=== PATIENT | female | born 1990 | race Caucasian/White ===

== ENCOUNTER 2018-04-29 03:07 | Day surgery (SDC) | payer OTHER ==
[2018-04-29] MEDS ORDERED: SODIUM CHLORIDE 0.9% 1,000 ML IV ONE (03:42)
[2018-04-29 03:50] LABS: BASOPHILS % (AUTO) 0.4 %; EOSINOPHILS # (AUTO) 0.1 10^3/uL (0.0-0.7); EOSINOPHILS % (AUTO) 1.5 %; HGB - HEMOGLOBIN 12.9 g/dL (12.0-16.0); LYMPHOCYTES # (AUTO) 2.6 10^3/uL (1.5-3.5); LYMPHOCYTES % (AUTO) 30.3 %; MEAN CORPUSCULAR HEMOGLOBIN 30.8 pg (27.0-31.0); MEAN CORPUSCULAR HGB CONC 35.2 g/dL (32.0-36.0); MEAN CORPUSCULAR VOLUME 87.4 fL (81.0-99.0); MEAN PLATELET VOLUME 7.7 fL (7.9-10.8); MONOCYTES # (AUTO) 0.5 10^3/uL (0.0-1.0); MONOCYTES % (AUTO) 6.3 %; NEUTROPHILS # (AUTO) 5.3 10^3/uL (1.5-6.6); NEUTROPHILS % (AUTO) 61.5 %; PLT - PLATELET COUNT 292 10^3/uL (130-450); RED BLOOD COUNT 4.19 10^6/uL (4.20-5.40); RED CELL DISTRIBUTION WIDTH 13.9 % (12.0-15.0); WHITE BLOOD COUNT 8.6 x10^3/uL (4.8-10.8)
--- NOTE | 2018-04-29 03:54 | ED Physician Documentation ---
PD HPI FEMALE - Stated complaint Stated Complaint: FEMALE /10 WEEKS PREG - Chief complaint Chief Complaint: Abd Pain - History obtained from History obtained from: Patient - History of Present Illness Timing - onset: Enter time (18:00), Today Timing - details: Abrupt onset Pain level max: 4 Associated symptoms: Pelvic pain, Vaginal bleeding. No: Fever, Abdominal pain, Back pain Contributing factors: (see below) OB-RAD TECH History: G (3), P (2) Recently seen: Clinic - Additional information Additional information: 3 days ago, patient had US at [facility]. She was 10w2d by dates, but US measurements were c/w 8w2d and no heart movement seen. Patient was told this was demise and was to have reevaluation next week. She was not having bleeding or cramping at the time. This evening at 6 PM while in a car [place] the [place], she had sudden onset vaginal bleeding and suprapubic cramping which worsened and thus presents to ED for evaluation. PATIENT STATES SHE IS [employer] AND THUS DOES NOT WANT ANY BLOOD PRODUCTS INCLUDING TRANSFUSIONS. Review of Systems Constitutional: reports: Reviewed and negative Cardiac: reports: Reviewed and negative Respiratory: reports: Reviewed and negative GI: reports: Abdominal Pain (suprapubic (pelvic) pain). denies: Nausea, Vomiting : reports: Now EGA (see HPI). denies: Dysuria, Frequency Musculoskeletal: reports: Reviewed and negative PD PAST MEDICAL HISTORY - Past Medical History Neuro: None HEENT: None - Present Medications Home Medications: Ambulatory Orders Medication Instructions Recorded Confirmed Meds For Yeast Infection 04/29/18 Meds- Bacterial Vaginosis 04/29/18 - Allergies Allergies/Adverse Reactions: Allergies Allergy/AdvReac Type Severity Reaction Status Date / Time No Known Drug Allergies Allergy Verified 04/29/18 03:19 - Social History Does the pt smoke?: No Smoking Status: Never smoker Does the pt drink ETOH?: No PD ED PE NORMAL - Vitals Vital signs reviewed: Yes - General General: Alert and oriented X 3, No acute distress (appears anxious ( appropriate to situation)), Well developed/nourished - HEENT HEENT: Moist mucous membranes - Cardiac Cardiac: No murmur - Respiratory Respiratory: No respiratory distress, Clear bilaterally - Abdomen Abdomen: Soft, Non tender, Non distended - Back Back: No CVA TTP - Derm Derm: Normal color, Warm and dry - Extremities Extremities: No edema - Neuro Neuro: Alert and oriented X 3 PD ED PE EXPANDED - Cardiac Cardiac: Tachy, Regular Rhythm - Female Female : Vaginal Bleeding, 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 Os visualized, and initially small amount of oozing/bleeding noted, quickly followed by brief, rapid bleeding which patient indicated was associated with cramping pain. This blood was again cleared with gauze and there was subsequently only mild oozing from the cervix ). No: Tissue present Results - Vitals Vitals: Vital Signs - 24 hr 04/29/18 04/29/18 04/29/18 03:16 04:16 05:50 Temperature 36.8 C Heart Rate 150 H 128 H 119 H Respiratory 18 18 18 Rate Blood Pressure 136/101 H 125/83 H 110/79 O2 Saturation 99 100 100 04/29/18 04/29/18 07:00 08:02 Temperature 36.8 C Heart Rate 139 H 133 H Respiratory 18 20 Rate Blood Pressure 113/81 H 101/79 O2 Saturation 100 100 Oxygen O2 Source Room air - Labs Labs: Laboratory Tests 04/29/18 04/29/18 04/29/18 03:20 03:20 06:05 WBC 8.6 13.0 H RBC 4.19 L 3.59 L Hgb 12.9 10.7 L Hct 36.6 L 31.4 L MCV 87.4 87.5 MCH 30.8 29.8 MCHC 35.2 34.0 RDW 13.9 13.9 Plt Count 292 236 MPV 7.7 L 7.2 L Neut # (Auto) 5.3 11.5 H Lymph # (Auto) 2.6 1.1 L Montour # (Auto) 0.5 0.4 Eos # (Auto) 0.1 0.0 Baso # (Auto) 0.0 0.0 Absolute Nucleated RBC 0.00 0.00 Nucleated RBC % 0.0 0.0 Sodium 135 Potassium 3.6 Chloride 105 Carbon Dioxide 22 Anion Gap 8.0 BUN 13 Creatinine 0.6 Estimated GFR (MDRD) 122 Glucose 163 H Calcium 8.7 Total Bilirubin 0.4 AST 17 ALT 15 Alkaline Phosphatase 68 Total Protein 7.1 Albumin 3.8 Globulin 3.3 Albumin/Globulin Ratio 1.2 Lipase 28 - Rads (name of study) pelvic/TV US Radiology: Prelim report reviewed, See rad report PD MEDICAL DECISION MAKING - ED course Complexity details: reviewed results, re-evaluated patient, considered differential, d/w patient ED course: Case D/W Dr. Law, who came to ED and evaluated patient in ED. On multiple reevaluations during ED stay, patient reported significant attenuation of her bleeding and cramping. However, hgb dropped 2.2 gm over a 2h 45min span, and she remained significantly tachycardic (note that she was given 1 liter NS, which likely partially contributed to the hgb change, and her BP remained stable (upper 90s-110s; anxiety likely playing significant role in tachycardia)) . This case is complicated by lack of PRBC transfusion as an option for treatment due to her shinto beliefs (Protestant). - Sepsis Event Vital Signs: Vital Signs - 24 hr 04/29/18 04/29/18 04/29/18 03:16 04:16 05:50 Temperature 36.8 C Heart Rate 150 H 128 H 119 H Respiratory 18 18 18 Rate Blood Pressure 136/101 H 125/83 H 110/79 O2 Saturation 99 100 100 04/29/18 04/29/18 07:00 08:02 Temperature 36.8 C Heart Rate 139 H 133 H Respiratory 18 20 Rate Blood Pressure 113/81 H 101/79 O2 Saturation 100 100 Oxygen O2 Source Room air Departure - Departure Disposition: ED Transfer to [facility] Clinical Impression: Incomplete Condition: Stable
[2018-04-29 03:57] LABS: ALBUMIN 3.8 g/dL (3.2-5.5); ALBUMIN/GLOBULIN RATIO 1.2 (1.0-2.2); BILIRUBIN,TOTAL 0.4 mg/dL (0.2-1.0); CALCIUM 8.7 mg/dL (8.5-10.3); CREATININE 0.6 mg/dL (0.4-1.0); TOTAL PROTEIN 7.1 g/dL (6.7-8.2)
--- NOTE | 2018-04-29 06:10 | Ultrasound Report ---
Procedure Date: 04/29/2018 Accession Number: [id number] / [id number] Procedure: US - OB First Trimester CPT Code: FULL RESULT: EXAM: FIRST TRIMESTER OBSTETRIC ULTRASOUND (Less than 11 weeks) EXAM DATE: 04/29/2018 05:06 AM. CLINICAL HISTORY: , vaginal bleeding. LMP: 02/14/2018. COMPARISONS: None. TECHNIQUE: Transabdominal and transvaginal ultrasound examination with static image documentation. CLINICAL DATES: EGA 10 weeks 4 days with MANUEL 11/21/2018 based on LMP. ASSESSMENT: Gestational Sac: No normal gestational sac identified. Embryo: Not seen. Cardiac activity: Not seen. Yolk sac: Not seen. Amniotic fluid: Not seen. Early placenta: Not seen. Other: Complex fluid collection in the lower uterine segment and cervix measuring 6.0 x 1.5 x 1.4 cm with some echogenic contents.. MATERNAL STRUCTURES: Uterus: Anteverted/Retroverted. Unremarkable. Cervix: Appears to be open. Right Ovary/Adnexa: Cyst measuring 1.6 x 1.3 x 1.0 cm. The ovary measures 2.6 x 2.2 x 3.4 cm, volume 9.8 cc. Left Ovary/Adnexa: Unremarkable. The ovary measures 2.7 x 2.0 x 2.1 cm, volume 6 cc. Free Fluid: Trace amount. Other: None. IMPRESSION: 1. No normal gestational sac is seen. 2. Complex fluid collection possibly representing abnormal gestational sac in the lower uterine segment and cervix measuring 6.0 x 1.5 x 1.4 cm with echogenic material possibly representing products of conception. Findings may represent in progress. 3. Ovaries appear normal with probable corpus luteum cyst on the right. 4. Trace amount of free fluid. RADIA
[2018-04-29 06:12] LABS: BASOPHILS % (AUTO) 0.3 %; EOSINOPHILS % (AUTO) 0.2 %; HGB - HEMOGLOBIN 10.7 g/dL (12.0-16.0); LYMPHOCYTES # (AUTO) 1.1 10^3/uL (1.5-3.5); LYMPHOCYTES % (AUTO) 8.2 %; MEAN CORPUSCULAR HEMOGLOBIN 29.8 pg (27.0-31.0); MEAN CORPUSCULAR VOLUME 87.5 fL (81.0-99.0); MEAN PLATELET VOLUME 7.2 fL (7.9-10.8); MONOCYTES # (AUTO) 0.4 10^3/uL (0.0-1.0); MONOCYTES % (AUTO) 3.4 %; NEUTROPHILS # (AUTO) 11.5 10^3/uL (1.5-6.6); NEUTROPHILS % (AUTO) 87.9 %; PLT - PLATELET COUNT 236 10^3/uL (130-450); RED BLOOD COUNT 3.59 10^6/uL (4.20-5.40); RED CELL DISTRIBUTION WIDTH 13.9 % (12.0-15.0)
[2018-04-29] MEDS ORDERED: miSOPROStol 200 MCG TABLET VG STA (07:20)
[2018-04-29] MEDS ORDERED: LIDOCAINE 1%-EPI 1:100000 30 ML MDV ONE (08:21)
--- NOTE | 2018-04-29 08:42 | HISTORY & PHYSICAL EXAMINATION ---
DATE OF SERVICE: 04/29/2018 Physician: Ariel Law MD PATIENT IDENTIFICATION: Patient is a 27-year-old G3, P2 female, who is 8 weeks by ultrasound. CHIEF COMPLAINT: Incomplete . HISTORY OF PRESENT ILLNESS: Patient was seen this Tuesday, at which time she had an ultrasound done at the [facility] and was noted to have an 8-week size gestation, without any cardiac activity. She elected for observation. Yesterday evening about 0800 hours, she developed bleeding, which was light initially like a period. It became progressively heavier, and she started passing clots. She needed to change a pad or tampon four times an hour. She denied any passage of tissue. She has an ultrasound done here, which shows no pole, but there is evidence of tissue in the mid to the lower uterus. Her hemoglobin has fallen from fallen from 12.9 to 10.7. She has been given 800 mcg of Cytotec vaginally at this time. She does have a history of hemorrhage in the past. PAST MEDICAL HISTORY: Patient denies any hypertensive, diabetic, cardiac, or pulmonary disease. PAST SURGICAL HISTORY: Positive for liposuction. ALLERGIES: NONE KNOWN. CURRENT MEDICATIONS: Flagyl 500 mg p.o. b.i.d. HABITS: Patient denies use of alcohol, tobacco, or street or addictive drugs. SOCIAL HISTORY: Patient is and lives with her children and active [employer] . She is [employer] and declines use of any blood at this time. However, when queried about utilizing RhoGAM, she consented to this. PHYSICAL EXAMINATION VITAL SIGNS: Temperature is 36.8, pulse 133, blood pressure 101/79, respirations 20, saturation 100%. HEENT: Pupils equal, round. Extraocular muscles intact. Mouth is clear. Thyroid is not palpably enlarged. HEART: Regular rate and rhythm without murmurs. LUNGS: Lung robin are clear without rales or wheezes. ABDOMEN: Soft with evidence of good bowel sounds. No organomegaly. No CVA tenderness or calf tenderness noted. PELVIC: Examination was done by the ER doctor, at which time she was noted to be passing clots through the vagina. This appears to have slowed down with time. We will plan to do a pelvic examination under anesthesia. LABORATORY/DATA White count is 13.0, hemoglobin was 10.7, hematocrit was 31.4, platelets are 236. Her chemistries were all within normal limits, with the exception of glucose which was mildly elevated at 163. Ultrasound was reviewed, and there is evidence of products of conception in the mid to the lower portion of the uterus. IMPRESSION: A 27-year-old G3, P2 female with 8-week incomplete AB. PLAN: We will perform sharp and suction D and C. We will do hysteroscopy if necessary. Risks and benefits have been explained to the patient including those, but not limited to bleeding, infection, injury to pelvic organs. She is aware of the potential for DVT as well as postop adhesions which would cause pain, bowel obstruction, and fertility. She is also aware that should her bleeding persist, that she may need to proceed on to a hysterectomy, in that we are not able to replace her blood loss with blood products. TD: 04/29/2018 08:30 MTDAlina
[2018-04-29] MEDS ORDERED: LACTATED RINGERS 1,000 ML IV ONE (08:58)
[2018-04-29] MEDS ORDERED: LIDOCAINE-MPF 2% 5 ML VIAL IM ONE (09:30)
[2018-04-29] MEDS ORDERED: DEXAMETHASONE 4 MG/ML VIAL IVP ONE (09:30)
[2018-04-29] MEDS ORDERED: MIDAZOLAM 2 MG/2 ML VIAL IVP ONE (09:30)
[2018-04-29] MEDS ORDERED: PROPOFOL 200 MG/20 ML VIAL IVP ONE (09:30)
[2018-04-29] MEDS ORDERED: METHYLERGONOVINE 0.2 MG/ML AMP IVP ONE (09:30)
[2018-04-29] MEDS ORDERED: fentaNYL 100 MCG/2 ML VIAL IVP ONE (09:30)
[2018-04-29] MEDS ORDERED: ONDANSETRON 4 MG/2 ML VIAL IVP ONE (09:30)
[2018-04-29] MEDS ORDERED: ceFAZolin 1 GM VIAL IV ONE (09:30)
[2018-04-29] MEDS ORDERED: LIDOCAINE MPF 1%-EPI 1:200000 30 ML VIAL SUBQ ONE (09:32)
[2018-04-29 10:40] VITALS: BP 117/79
--- NOTE | 2018-04-29 19:55 | OPERATIVE REPORT ---
DATE OF SERVICE: 04/29/2018 Physician: Ariel Law MD PREOPERATIVE DIAGNOSES 1. Eight-week incomplete/missed . 2. Bleeding. POSTOPERATIVE DIAGNOSES 1. Eight-week incomplete/missed . 2. Bleeding. NAME OF PROCEDURE: Sharp and suction dilation and curettage. SURGEON: Ariel Law MD ANESTHESIA: General via LMA with Warren Mensah CRNA FINDINGS: Upon placing the speculum, there is evidence of the cervix being patent. There were products of conception which appeared to be in the lower cervical segment. The uterus sounded to 11 cm, and there was a moderate to large amount of products of conception inside the uterus. The uterus was midline to anterior in orientation. COMPLICATIONS: None. ESTIMATED BLOOD LOSS: 150 mL SPECIMENS FOR PATHOLOGY: Products of conception. PROCEDURE: Following adequate general anesthesia via LMA, the patient was placed in the dorsal lithotomy position in [facility]. At this time, pelvic examination under anesthesia was performed. There was blood on the external vulva. There was blood in the vaginal vault. The cervix was digitally palpated and noted to be patent. The uterus itself was difficult to palpate secondary to abdominal wall thickness. At this point, she was prepped and draped in the usual fashion. A timeout was performed, concerns were identified, those of her being Latter day and the need to minimize blood loss. The option of proceeding on to hysteroscopy was mentioned. The procedure was commenced. A speculum was placed. Cervix was visualized and grasped with a single-tooth tenaculum. The cervix easily admitted a ring forceps. As a matter of fact, there was tissue that was felt there, and this was teased out. An 11 mm curved suction catheter was then placed in the uterus following sounding the uterus to 11 cm. Suction was applied up to 60 mm, and then the suction catheter was rotated. A large amount of tissue was noted to come through the tubing. The currette was rotation and likewise the curette was being removed at the same time. A second introduction showed little to no more tissue. The endometrial cavity was then sharply curetted in all 4 quadrants. No further tissue was obtained. The suction catheter was placed one more time, and no further tissue was noted. At this point, the cervix was injected with 20 mL total of 1% Xylocaine with epinephrine and the uterosacral ligaments bilaterally. Care was taken to aspirate every 2 mL to assure that this was not injected intravascularly. At this point, the cervix was released from the single-tooth tenaculum. These sites showed no bleeding; however, there was difficulty with some oozing coming from the uterosacral puncture sites. Direct pressure was applied with a ring forceps for 3 minutes, and these resolved. The cervix was inspected and no further bleeding was noted. The patient was taken to recovery in stable condition. Sponge and needle counts were correct. TD: 04/29/2018 10:12 DAVY
== END 2018-04-29 08:17 | disposition home or self-care (01) ==
LOC: ED 03:07 → SDS 08:16
PROVIDERS: ATTEND Obstetrics & Gynecology
PROC: 10D17Z9 Manual Extraction of Products of Conception, Retained, Via Natural or Artificial Opening (ICD-10-PCS; principal; 2018-04-29 09:00)
DX: O02.1 Missed abortion (principal)
CPT/HCPCS: 36415; 57180; 59820; 76801; 76817; 80053; 83690; 85025; 86850; 86900; 86901; 96360; 99283; 99284; A9270; J7120